=== PATIENT | male | born 1985 | race Caucasian/White ===

== ENCOUNTER 2016-04-22 14:00 | Observation (INO) | payer OTHER ==
[2016-04-22] MEDS ORDERED: ONDANSETRON HCL/PF 2 MG/ML VIAL IV ONE (14:24)
[2016-04-22] MEDS ORDERED: ONDANSETRON HCL/PF 2 MG/ML VIAL ONE ×2 (14:25→19:09)
[2016-04-22 14:36] LABS: Hematocrit 44.6 % (42.0-52.0); Hemoglobin 16.8 gm/dL (13.5-18.0); Mean Cell Volume 90.3 fl (78-100); Mean Corpuscular Hgb Conc 37.7 g/dl (32-36); Mean Platelet Volume 8.2 fl (6.0-9.5); Neutrophil # 9.4 K/mm3 (1.3-6.0); Neutrophil % 74.3 % (42-75.0); Platelet Count 273 K/mm3 (150-450); Red Blood Count 4.94 M/mm3 (4.7-6.0); Red Cell Distribution Width 11.9 % (11.5-14.0); White Blood Count 12.6 K/mm3 (4.0-10.5)
[2016-04-22] MEDS: NORMAL SALINE 1,000 ML IV ONE ×2 (14:38→15:12)
[2016-04-22 14:50] LABS: ALT 244 U/L (19-67); AST 115 U/L (0-48); Albumin * 4.4 gm/dl (3.4-5.0); Alkaline Phosphatase * 102 U/L (50-170); Amylase * 54 U/L (25-115); Anion Gap 25.1 mmol/L (6.8-13.8); BUN/Creatinine Ratio 22.4 (9.0-21.6); Bilirubin, Total 1.1 mg/dL (0.0-1.1); Blood Urea Nitrogen 38 mg/dL (6-23); Ca. Corrected For Albumin 8.5 mg/dL (8.4-10.2); Calcium * 9.1 mg/dL (7.9-10.9); Carbon Dioxide 24.4 mmol/L (24-32.6); Chloride 86 mmol/L (97-106); Glucose * 425 mg/dL (70-110); Lipase 110 U/L (73-393); Potassium 4.5 mmol/L (3.4-4.6); Sodium 131 mmol/L (132-142); Total Protein 8.2 gm/dL (6.2-8.2)
[2016-04-22] MEDS ORDERED: NORMAL SALINE 1,000 ML IV ONE (15:11)
--- NOTE | 2016-04-22 15:24 | ERNOTE ---
Medical Problem HPI - General Chief Complaint: Nausea/Vomiting Source: patient Exam Limitations: no limitations - Immun/Allergies/Home Medications Immunizations: IMMUNIZATION HX Immunizations Up to Date Yes History of Influenza Vaccine No Hx Pneumococcal Vaccination No Allergies/Adverse Reactions: Allergies oxycodone [Oxycodone] Allergy (Mild, Verified 04/22/16 14:22) N/V acetaminophen [From Percocet] Allergy (Verified 04/22/16 14:22) oxycodone HCl [From Percocet] Allergy (Verified 04/22/16 14:22) Home Medications: HOME MEDICATIONS Hydrophilic Ointment [Aquaphilic Ointment] 1 appl TP BID #1 jar 06/06/15 [Last Taken Unknown] Aspirin [Aspirin Enteric Coated] 81 mg PO DAILY 10/22/15 [Last Taken Unknown] Aspirin/Acetaminophen/Caffeine [Excedrin Migraine Caplet] 1 each PO BID PRN [Last Taken Unknown] Blood Sugar Diagnostic, Drum [Accu-Chek Compact] 1 each MC QID 10/22/15 [Last Taken Unknown] Fluticasone Propionate [Flonase] 1 spray NS DAILY 10/22/15 [Last Taken Unknown] Gabapentin 800 mg PO QID 10/22/15 [Last Taken Unknown] Insulin Lispro [Humalog] 0 unit SQ ACHS 10/22/15 [Last Taken Unknown] Mupirocin [Bactroban] 1 appl TP BID 10/22/15 [Last Taken Unknown] Divalproex Sodium [Depakote] 250 mg PO HS 04/22/16 [Last Taken Unknown] Insulin Detemir [Levemir Flextouch] 26 unit SQ BID 04/22/16 [Last Taken Unknown] Mirtazapine [Remeron] 30 mg PO DAILY 04/22/16 [Last Taken Unknown] Rosuvastatin Calcium [Crestor] 20 mg PO DAILY 04/22/16 [Last Taken Unknown] Sulfamethoxazole/Trimethoprim [Bactrim Ds] 1 tab PO BID 04/22/16 [Last Taken Unknown] Insulin Detemir [Levemir] 26 units SC BID vial 04/23/16 [Last Taken Unknown] Insulin Lispro [Humalog] 4 - 13 units SC ACINS vial 04/23/16 [Last Taken Unknown] Insulin Lispro [Humalog] 5 units SC ACINS vial 04/23/16 [Last Taken Unknown] - History of Present History Narrative: Patient woke up vomiting yesterday. He is a insulin dependant diabetic. He states that he has been taking his insulin but only checks his glucose when he feels that he might be running too low or too high, has not checked it in a few days Date (Duration): 04/21/16 Timing: constant Review of Systems - Review of Systems Constitutional: Absent: recent illness, fever, chills ENT: Absent: nose congestion, sore throat Respiratory: Absent: shortness of breath, cough Cardiology: Absent: chest pain Gastrointestinal/Abdominal: Present: See HPI, nausea, vomiting, abdominal pain. Absent: diarrhea Genitourinary: Present: decreased urinary output Musculoskeletal: Absent: neck pain Skin: Absent: rash Neurological: Absent: headache - Patient's Past Medical History Patient History - Medical: Diabetes Type 1, Migraines Patient History - Cardiac/Respiratory: No pertinent hx Patient History - Cancer: No Hx of Cancer Patient History - Surgical Procedures: Cataracts, Other Patient History - Other: None - Family History Father Family History - Medical: No pertinent hx Family History - Cardiac/Respiratory: No pertinent hx Mother Family History - Medical: Hypothyroidism Family History - Cardiac/Respiratory: No pertinent hx Mom Family History - Medical: Hypothyroidism Family History - Cardiac/Respiratory: No pertinent hx - Social History Living Situations: alone Abuse History: No History of abuse Psych History: No pertinent hx Smoking Status: Current every day smoker Have you smoked in the past 12 months: Yes Alcohol Use: occasionally Drug Use: none - Immunizations Immunizations Up to Date: Yes Hx Pneumococcal Vaccination: No History of Influenza Vaccine: No Physical Exam - Physical Exam General Appearance: Present: wd/wn, alert, no apparent distress, other - unkept Ears, Nose, Throat: Present: normal pharynx, dry mucous membranes Neck: Present: normal inspection Respiratory: Present: no respiratory distress, no accessory muscle use, lungs clear, decreased breath sounds Cardiovascular/Chest: Present: regular rate, rhythm, no murmur Gastrointestinal/Abdominal: Present: normal bowel sounds, nondistended, soft, tenderness - mild, left abdomen Neurological Exam: Present: alert, oriented, normal mood/affect Skin Exam: Present: normal color, warm/dry ED Progress - Results and Orders Patient's Lab Results:: I have reviewed the patient's lab results. - Vital Signs Patient's Vital Signs:: I have reviewed the patient's vital signs. Vital Signs: Vital Signs 04/22/16 14:09 Temperature 36.3 C L Pulse Rate 94 Respiratory 16 Rate Blood Pressure 121/81 O2 Sat by Pulse 97 Oximetry - Progress/Reassessment Chief Complaint: Nausea/Vomiting Progress Note-Subjective: 04/22/16 15:27 discussed with arti Victoria to admit for DKA protocol Departure - Departure Clinical Impression: DKA (diabetic ketoacidoses) Qualifiers: Diabetes mellitus type: type 1 Diabetes mellitus complication detail: without coma Qualified Code(s): E10.10 - Type 1 diabetes mellitus with ketoacidosis without coma Disposition: [facility] Condition: Good
[2016-04-22] MEDS ORDERED: INSULIN REGULAR HUMAN REC 100 UNITS in NORMAL SALINE 100 ML IV PRN (15:26)
--- OUTSIDE RECORDS SUMMARY | 2016-04-22 15:31 | XMS REPORT | Continuity of Care Document ---
:1985 Author Organization [facility] ([facility]) Address [address] [place] [address] Phone [phone] Care Team Providers Name Role Phone Sisi Sokamlesh Primary Care Provider [phone] Source Comments This disclosure is being made pursuant to the Care Everywhere program, applicable federal and state laws, and may not contain all informaitonavailable regarding this patient.[facility] ([facility]) Active Allergies and Adverse Reactions Allergen Noted Date Severity Reactions Comments Oxycodone 11/04/2013 Nausea & Vomiting Current Medications Prescription Sig. Disp. Refills Start Date End Date Status blood glucose meter Use as directed 1 Each 0 04/15/2011 Active (BLOOD GLUCOSE Indications: METER) Kit Diabetes Mellitus SUPPLY blood glucose Use to test blood 100 Strip 03/16/2012 Active test strips sugars 4 times daily or as directed. Indications: DIABETES MELLITUS SUPPLY insulin pen Use as directed with 100 Each 6 03/16/2012 Active needles (PEN insulin NEEDLES) 31 g X 6 pens.Dispense MM UltiCare or SM Clickfine Pen [place] Indications: DIABETES MELLITUS SUPPLY lancets Use twice daily or 150 Each 03/16/2012 Active as directed. Indications: DIABETES MELLITUS amitriptyline 25 mg Take 1 Tab by mouth 60 Tab 3 04/09/2012 Active tablet at bedtime. Indications: NEUROPATHIC PAIN insulin aspart inject 2-10 Units 03/16/2012 Active (NovoLOG FLEXPEN) subcutaneously 3 100 unit/mL (3 mL) times daily before injection pen meals. 5 units + sliding scale Indications: TYPE 1 DIABETES MELLITUS folic acid 1 mg Take 1 Tab by mouth 30 Tab 5 06/30/2014 Active tablet daily. Indications: hx of alcohol abuse thiamine 100 mg Take 1 Tab by mouth 30 Tab 5 06/30/2014 Active tablet daily. 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 08/2015 with macular edema, bilateral Pseudophakia of both eyes 02/06/2016 Immune to hepatitis A 03/28/2014 Immune to hepatitis B 03/28/2014 Health education/counseling 04/09/2012 Neuropathy of both feet 03/16/2012 Knee pain, right 04/15/2011 Goals per pt 04/15/2011 Type I (juvenile type) diabetes mellitus without mention of complication, 04/2009 uncontrolled Tobacco use disorder 01/02/2010 Chronic hepatitis C without mention of hepatic coma 01/02/2010 Most Recent Encounters Date Type Specialty Providers Description 02/06/2016 Office Visit Ophthalmology - Chief Comp: Patient Specialty Reported Reason For Visit 02/06/2016 Office Visit Ophthalmology - Chief Comp: Patient Specialty Reported Reason For Visit 02/06/2016 Office Visit Ophthalmology - Roby Gong MD Dx: Pseudophakia, both Specialty eyes (Primary Dx) Immunizations Name Dates Previously Given Next Due Influenza, PF 03/16/2012,04/15/2011 Pneumococcal Polysaccharide, PPSV23 (Pneumovax 23) 01/02/2010 Tdap 01/02/2010 Social History Tobacco Use Types Packs/Day Years Used Date Current Every Day Smoker Cigarettes 0.5 17 Smokeless Tobacco: Current User Snuff Tobacco Cessation:Ready to Quit: No; Counseling Given: Yes Comments: Alcohol Use Drinks/Week oz/Week Comments Yes occ Last Filed Vital Signs Vital Sign Reading Time Taken Blood Pressure 129/65 06/30/2014 3:20 PM CDT Pulse 81 06/30/2014 3:20 PM CDT Temperature 36.7 C (98.1 F) 06/30/2014 3:20 PM CDT Respiratory Rate 16 09/27/2011 8:19 AM CDT Height 1.803 m (5' 10.98") 06/30/2014 3:20 PM CDT Weight 77.021 kg (169 lb 12.8 oz) 06/30/2014 3:20 PM CDT Body Mass Index 23.69 06/30/2014 3:20 PM CDT Oxygen Saturation 99% 09/27/2011 8:19 AM CDT Plan of Care Patient Goal Type Goal Diet Eat more fruits and vegetables Have 3 meals a day Result Component % HBA1C below 7.0 % HBA1C below 7.0 Lifestyle Quit smoking / using tobacco Date Type Specialty Providers Description 07/17/2016 Appointment Ophthalmology - Roby Gong MD Chief Comp: Patient Specialty [address] [place] [address] Visit [phone] (Fax) Health Maintenance Due Date Last Done Comments Hepatitis B Vaccine (1 of 3 - Primary 1985 Series) MMR Vaccine 06/20/2001 Varicella Vaccine (1 of 2 - Adult - 06/20/2001 No Evidence of Immunity) DIABETIC: Microalbumin 04/24/2012 04/24/2011 DIABETIC: Hemoglobin A1C 09/13/2012 03/16/2012, 04/15/2011, 01/02/2010 DIABETIC: Cholesterol 03/16/2013 03/16/2012, 04/15/2011 DIABETIC: Foot Exam 03/16/2013 03/16/2012, 04/15/2011, 04/15/2011 Diabetic: Hdl 03/16/2013 03/16/2012, 04/15/2011 Diabetic: Ldl 03/16/2013 03/16/2012, 04/15/2011 DIABETIC: Triglycerides 03/16/2013 03/16/2012, 04/15/2011 Influenza Vaccine: Seasonal (#1) 10/01/2015 03/16/2012, 04/15/2011 DIABETIC: Retinal Eye Exam 02/05/2017 02/06/2016, 05/08/2011 Td Vaccine 01/03/2020 01/02/2010 Pneumococcal Vaccine Completed 01/02/2010 Tdap Vaccine Completed 01/02/2010 Results from Last 3 Months OCT MACULA (02/06/2016 3:27 PM) Narrative Spectralis ocular coherence tomography shows mild cystoid macular edema and exudates in both eyes sparing the fovea. The foveal contour is intact in both eyes. There is trace epiretinal membrane in both eyes. Cirrus ocular coherence tomography angiography demonstrates mild juxtafoveal flow loss in superficial and deep retinal plexi both eyes as well as numerous microaneurysms, no neovascularization either eye. COLOR FUNDUS PHOTOGRAPHY (02/06/2016 3:25 PM) Narrative Optos wide-field imaging of both eyes. There are scattered intraretinal hemorrhages and cotton-wool spots in the macula and mid-periphery of both eyes. There is no neovascularization of the disc or elsewhere seen either eye.
--- OUTSIDE RECORDS SUMMARY | 2016-04-22 15:41 | XMS REPORT | Continuity of Care Document ---
:1985 Author Organization [facility] ([facility]) Address [address] [place] [address] Phone [phone] Care Team Providers Name Role Phone Sisi Sokamlesh Primary Care Provider [phone] Source Comments This disclosure is being made pursuant to the Care Everywhere program, applicable federal and state laws, and may not contain all informaitonavailable regarding this patient.[facility] ([facility]) Active Allergies and Adverse Reactions Allergen Noted [...] pens.Dispense MM UltiCare or SM Clickfine Pen [place] Indications: DIABETES MELLITUS SUPPLY lancets Use twice [...] Specialty [address] [place] [address] Visit [phone] (Fax) Health Maintenance Due Date Last Done [...]
[2016-04-22] MEDS ORDERED: POTASSIUM CHLORIDE 20 MEQ in DEXTROSE 5%-0.5 NORMAL SALINE 990 ML IV SCH (15:45)
[2016-04-22 16:19] LABS: Carbon Dioxide 24.1 mmol/L (24-32.6); Potassium 4.1 mmol/L (3.4-4.6)
[2016-04-22 16:27] LABS: Urine Bilirubin 1 mg/dl (NEGATIVE); Urine Blood 25 /ul (NEGATIVE); Urine Ketone Large mg/dL (NEGATIVE); Urine Nitrite Negative (NEGATIVE); Urine Protein 15 mg/dL (NEGATIVE); Urine Urobilinogen Normal (NORMAL)
[2016-04-22 16:33] LABS: Cocaine Ur Negative (NEGATIVE); Urine Barbiturate Negative (NEGATIVE); Urine Benzodiazepines Negative (NEGATIVE); Urine Opiates Negative (NEGATIVE); Urine PCP Negative (NEGATIVE)
[2016-04-22 16:34] LABS: Urine THC Positive (NEGATIVE)
[2016-04-22 16:39] LABS: Urine Appearance Clear; Urine Bacteria None Seen; Urine Color Yellow; Urine RBC None Seen /hpf (0-5); Urine WBC None Seen /hpf (0-5)
[2016-04-22 16:40] LABS: Urine Hyaline Cast TRACE /LPF
[2016-04-22] MEDS: POTASSIUM CHLORIDE 40 MEQ in NORMAL SALINE 1,000 ML IV SCH ×2 (17:01→22:30)
[2016-04-22] MEDS: GABAPENTIN 400 MG CAPSULE PO SCH ×2 (17:04→21:36)
[2016-04-22 17:50] LABS: Carbon Dioxide 27.3 mmol/L (24-32.6); Potassium 4.3 mmol/L (3.4-4.6)
[2016-04-22 20:44] LABS: Anion Gap 11.7 mmol/L (6.8-13.8); Carbon Dioxide 29.6 mmol/L (24-32.6); Potassium 4.3 mmol/L (3.4-4.6)
[2016-04-22] MEDS ORDERED: ONDANSETRON HCL/PF 2 MG/ML VIAL IV PRN (20:44)
[2016-04-22] MEDS ORDERED: MUPIROCIN 22 APPL TUBE TP SCH (21:00)
[2016-04-22] MEDS ORDERED: ROSUVASTATIN CALCIUM 10 MG TABLET PO SCH (21:00)
[2016-04-22] MEDS ORDERED: HYDROPHILIC OINTMENT 454 APPL JAR TP SCH (21:00)
[2016-04-22] MEDS ORDERED: MIRTAZAPINE 15 MG TABLET PO SCH (21:00)
[2016-04-22] MEDS ORDERED: SULFAMETHOXAZOLE/TRIMETHOPRIM 1 TAB TABLET PO SCH (21:00)
[2016-04-22] MEDS ORDERED: DIVALPROEX SODIUM 250 MG TABLET.DR PO SCH (21:00)
[2016-04-22] MEDS ORDERED: POTASSIUM CHLORIDE 20 MEQ in NORMAL SALINE 1,000 ML IV SCH (21:30)
[2016-04-22 21:58] LABS: Anion Gap 11.7 mmol/L (6.8-13.8); Carbon Dioxide 29.2 mmol/L (24-32.6); Potassium 3.9 mmol/L (3.4-4.6)
[2016-04-22] MEDS ORDERED: POTASSIUM CHLORIDE 20 MEQ TABLET.SA PO SCH (23:15)
[2016-04-22] MEDS ORDERED: FLUTICASONE PROPIONATE 120 SPRAY INHALER NS SCH (23:30)
[2016-04-22] MEDS: ONDANSETRON HCL/PF 2 MG/ML VIAL IV SCH ×2 (23:49→23:52)
[2016-04-22 23:59] LABS: Anion Gap 10.4 mmol/L (6.8-13.8); Carbon Dioxide 29.3 mmol/L (24-32.6); Potassium 3.7 mmol/L (3.4-4.6)
--- NOTE | 2016-04-23 00:17 | HP ---
Chief Complaint - Chief Complaint Date of Service: 04/23/16 Time of Service: 18:45 Chief Complaint: Vomiting History of Present Illness: This 30 y/o type 1 diabetic woke up vomiting yesterday morning. No prodrome. Multiple episodes of stomach contents through today when he came to the [facility] ER. Didn't take his temperature. No diarrhea. No one in his house ill with a similar illness. In the ER, hyperglycemic with positive ketones. Given IV fluids, IV insulin and symptomatic meds. At the time of my exam, he is substantially improved. - Patient's Past Medical History Patient History - Medical: Diabetes Type 1, Migraines Patient History - Cardiac/Respiratory: No pertinent hx Patient History - Cancer: No Hx of Cancer, Other - MRSA imptetigo. Eczema. Patient History - Surgical Procedures: Cataracts, Other Patient History - Other: None - Family History Father Family History - Medical: No pertinent hx Family History - Cardiac/Respiratory: No pertinent hx Mother Family History - Medical: Hypothyroidism Family History - Cardiac/Respiratory: No pertinent hx Mom Family History - Medical: Hypothyroidism Family History - Cardiac/Respiratory: No pertinent hx - Social History Living Situations: alone Abuse History: No History of abuse Psych History: No pertinent hx Smoking Status: Current every day smoker Have you smoked in the past 12 months: Yes Do you dip or chew tobacco: Yes Smoking Start Date: 03/02/99 Patient requests Smoking Cessation Consult: No Initiate information on Smoking Cessation: No Alcohol Use: occasionally Drug Use: none - Immunizations Immunizations Up to Date: Yes Hx Pneumococcal Vaccination: No History of Influenza Vaccine: No Review Of Systems (GEN) - Review of Systems Generalized/Overall Review: Present: Weakness, Malaise, Diaphoresis EENTM: Present: No Symptoms Reported Respiratory: Present: No Symptoms Reported Cardiac: Present: No Symptoms Reported Abdominal: Present: Nausea, Vomiting Genitourinary: Present: No Symptoms Reported Musculoskeletal: Present: No Symptoms Reported Neurological: Present: No Symptoms Reported Skin: Present: No Symptoms Reported Endocrine: Present: No Symptoms Reported Misc: All systems neg except as marked Immunizations: IMMUNIZATION HX Immunizations Up to Date Yes History of Influenza Vaccine No Hx Pneumococcal Vaccination No Allergies/Adverse Reactions: Allergies Allergy/AdvReac Type Severity Reaction Status Date / Time oxycodone [Oxycodone] Allergy Mild N/V Verified 04/22/16 14:22 acetaminophen [From Percocet] Allergy Verified 04/22/16 14:22 oxycodone HCl [From Percocet] Allergy Verified 04/22/16 14:22 Home Medications: HOME MEDICATIONS Hydrophilic Ointment [Aquaphilic Ointment] 1 appl TP BID #1 jar 06/06/15 [Last Taken Unknown] Aspirin [Aspirin Enteric Coated] 81 mg PO DAILY 10/22/15 [Last Taken Unknown] Aspirin/Acetaminophen/Caffeine [Excedrin Migraine Caplet] 1 each PO BID PRN [Last Taken Unknown] Blood Sugar Diagnostic, Drum [Accu-Chek Compact] 1 each MC QID 10/22/15 [Last Taken Unknown] Fluticasone Propionate [Flonase] 1 spray NS DAILY 10/22/15 [Last Taken Unknown] Gabapentin 800 mg PO QID 10/22/15 [Last Taken Unknown] Insulin Lispro [Humalog] 0 unit SQ ACHS 10/22/15 [Last Taken Unknown] Mupirocin [Bactroban] 1 appl TP BID 10/22/15 [Last Taken Unknown] Divalproex Sodium [Depakote] 250 mg PO HS 04/22/16 [Last Taken Unknown] Insulin Detemir [Levemir Flextouch] 26 unit SQ BID 04/22/16 [Last Taken Unknown] Mirtazapine [Remeron] 30 mg PO DAILY 04/22/16 [Last Taken Unknown] Rosuvastatin Calcium [Crestor] 20 mg PO DAILY 04/22/16 [Last Taken Unknown] Sulfamethoxazole/Trimethoprim [Bactrim Ds] 1 tab PO BID 04/22/16 [Last Taken Unknown] Exam - Exam Vital Signs: Vital Signs - Last Taken Selected Entries 04/22/16 16:00 Temperature 37.1 C Temperature Oral Source Pulse Rate 80 Pulse Rhythm Regular Pulse Strength Normal Respiratory 20 Rate Respiratory Normal Depth Respiratory Normal Effort Non-Labored Respiratory Normal Pattern Blood Pressure 112/71 Blood Pressure Sitting Position O2 Sat by Pulse 97 Oximetry Oxygen Delivery Room Air Method Constitutional: Present: Alert, Oriented x3, Cooperative, Well developed, Well nourished, No distress ENT Exam: Present: normal ENT inspection, hearing grossly normal, pharynx normal Eye Exam: bilateral eye: normal inspection, PERRL, EOMI Neck: Present: normal inspection Back Exam: Present: normal inspection Respiratory: Present: lungs clear, no respiratory distress Cardiovascular/Chest: Present: regular rate, rhythm, no murmur Abdomen: Present: Normal bowel sounds, soft, nontender, nondistended, no rebound tenderness, no hepatospenomegaly, no masses Extremity: Present: normal inspection, no pedal edema Skin Exam: Present: normal color, warm/dry, no cyanosis Neurologic: Present: alert, oriented x 3 Appearance: Present: appropriate appearance, neat, no memory impairment Eye contact: Present: cooperative, good eye contact, normal speech Thoughts: Present: normal thought pattern Diagnostic Studies: Abnormal Lab Results 04/22/16 04/22/16 04/22/16 Range/Units 16:01 16:15 16:15 Chloride 93 L (97-106) mmol/L Anion Gap 20.0 H (6.8-13.8) mmol/L Urine Protein 15 H (NEGATIVE) mg/dL Urine Glucose (UA) >=1000 H (NEGATIVE) mg/dL Urine Blood 25 H (NEGATIVE) /ul Urine Bilirubin 1 H (NEGATIVE) mg/dl Urine Marijuana (THC) Positive H (NEGATIVE) 04/22/16 04/22/16 Range/Units 17:42 19:45 Chloride 95 L 96 L (97-106) mmol/L Anion Gap 17.0 H (6.8-13.8) mmol/L Urine Protein (NEGATIVE) mg/dL Urine Glucose (UA) (NEGATIVE) mg/dL Urine Blood (NEGATIVE) /ul Urine Bilirubin (NEGATIVE) mg/dl Urine Marijuana (THC) (NEGATIVE) Laboratory Results WBC 12.6 K/mm3 (4.0-10.5) H 04/22/16 14:25 RBC 4.94 M/mm3 (4.7-6.0) 04/22/16 14:25 Hgb 16.8 gm/dL (13.5-18.0) 04/22/16 14:25 Hct 44.6 % (42.0-52.0) 04/22/16 14:25 MCV 90.3 fl (78-100) 04/22/16 14:25 MCH 34.0 pg (27-31) H 04/22/16 14:25 MCHC 37.7 g/dl (32-36) H 04/22/16 14:25 RDW 11.9 % (11.5-14.0) 04/22/16 14:25 Plt Count 273 K/mm3 (150-450) 04/22/16 14:25 MPV 8.2 fl (6.0-9.5) 04/22/16 14:25 Immature Gran % (Auto) 0.40 % (0.001-0.429) 04/22/16 14:25 Immature Gran # (Auto) 0.05 K/mm3 (0.000-0.0310) H 04/22/16 14:25 Neutrophils % 74.3 % (42-75.0) 04/22/16 14:25 Lymphocytes % 16.2 % (20-51) L 04/22/16 14:25 Monocytes % 8.7 % (0.0-9) 04/22/16 14:25 Eosinophils % 0.1 % (0.0-3.0) 04/22/16 14:25 Basophils % 0.3 % (0.0-1.0) 04/22/16 14:25 Nucleated RBC % 0.0 k/mm3 (0-1) 04/22/16 14:25 Neutrophils # 9.4 K/mm3 (1.3-6.0) H 04/22/16 14:25 Lymphocytes # 2.0 k/mm3 (1.5-3.5) 04/22/16 14:25 Monocytes # 1.1 k/mm3 (0.0-1.0) H 04/22/16 14:25 Eosinophils # 0.0 k/mm3 (0.0-0.7) 04/22/16 14:25 Absolute Basophils 0.0 k/mm3 (0.0-0.1) 04/22/16 14:25 VBG pH 7.455 (7.32-7.43) H 04/22/16 14:25 Sodium 137 mmol/L (132-142) 04/22/16 23:47 Plasma Sodium 136 mmol/L (130-142) 04/22/16 14:25 Potassium 3.7 mmol/L (3.4-4.6) 04/22/16 23:47 Chloride 101 mmol/L (97-106) 04/22/16 23:47 Carbon Dioxide 29.3 mmol/L (24-32.6) 04/22/16 23:47 Anion Gap 10.4 mmol/L (6.8-13.8) 04/22/16 23:47 BUN 38 mg/dL (6-23) H D 04/22/16 14:25 Creatinine 1.70 mg/dL (0.4-1.4) H D 04/22/16 14:25 Est GFR (Non-Af Amer) 50 mL/min (60-130) L D 04/22/16 14:25 BUN/Creatinine Ratio 22.4 (9.0-21.6) H 04/22/16 14:25 Random Glucose 425 mg/dL (70-110) H 04/22/16 14:25 Calcium 9.1 mg/dL (7.9-10.9) 04/22/16 14:25 Calcium Adj for Albumin 8.5 mg/dL (8.4-10.2) 04/22/16 14:25 Total Bilirubin 1.1 mg/dL (0.0-1.1) 04/22/16 14:25 AST 115 U/L (0-48) H 04/22/16 14:25 ALT 244 U/L (19-67) H 04/22/16 14:25 Alkaline Phosphatase 102 U/L (50-170) 04/22/16 14:25 Total Protein 8.2 gm/dL (6.2-8.2) 04/22/16 14:25 Albumin 4.4 gm/dl (3.4-5.0) 04/22/16 14:25 Amylase 54 U/L (25-115) 04/22/16 14:25 Lipase 110 U/L (73-393) 04/22/16 14:25 Urine Color Yellow 04/22/16 16:15 Urine Appearance Clear 04/22/16 16:15 Urine pH 6.0 pH (5.0-7.0) 04/22/16 16:15 Ur Specific [place] 1.020 SP.GR. (1.005-1.030) 04/22/16 16:15 Urine Protein 15 mg/dL (NEGATIVE) H 04/22/16 16:15 Urine Glucose (UA) >=1000 mg/dL (NEGATIVE) H 04/22/16 16:15 Urine Ketones Large mg/dL (NEGATIVE) 04/22/16 16:15 Urine Blood 25 /ul (NEGATIVE) H 04/22/16 16:15 Urine Nitrate Negative (NEGATIVE) 04/22/16 16:15 Urine Bilirubin 1 mg/dl (NEGATIVE) H 04/22/16 16:15 Urine Ictotest Negative (NEGATIVE) 04/22/16 16:15 Prot Sulfosalicylic Acd Negative mg/dL (0) 04/22/16 16:15 Urine Urobilinogen Normal EU/dl (NORMAL) 04/22/16 16:15 Ur Leukocyte Esterase Negative /ul (NEGATIVE) 04/22/16 16:15 Urine RBC None seen /hpf (0-5) 04/22/16 16:15 Urine WBC None seen /hpf (0-5) 04/22/16 16:15 Ur Epithelial Cells None seen /hpf (0-5) 04/22/16 16:15 Urine Bacteria None seen (NONE) 04/22/16 16:15 Hyaline Casts Trace /LPF (NONE) 04/22/16 16:15 Urine Culture Comments No culture indicated 04/22/16 16:15 Urine Opiates Screen Negative (NEGATIVE) 04/22/16 16:15 Barbiturate Screen Negative (NEGATIVE) 04/22/16 16:15 Ur Phencyclidine Scrn Negative (NEGATIVE) 04/22/16 16:15 Urine Amphetamine Negative (NEGATIVE) 04/22/16 16:15 U Benzodiazepines Scrn Negative (NEGATIVE) 04/22/16 16:15 Urine Cocaine Screen Negative (NEGATIVE) 04/22/16 16:15 Urine Marijuana (THC) Positive (NEGATIVE) H 04/22/16 16:15 Serum Ketones Positive - 80mg/dl (NEGATIVE) H 04/22/16 14:25 Assessment/Plan - Narrative Narrative: IV fluids. Frequent sugar checks. Maintain electrolytes. Symptom control. IV insulin. Hopefully, home tomorrow. - Assessment/Plan (1) DKA (diabetic ketoacidoses) Problem: Acute Qualifiers: Diabetes mellitus type: type 1 Diabetes mellitus complication detail: without coma Qualified Code(s): E10.10 - Type 1 diabetes mellitus with ketoacidosis without coma (2) Eczema Problem: Chronic Qualifiers: Eczema type: unspecified Qualified Code(s): L30.9 - Dermatitis, unspecified (3) Tobacco abuse Problem: Chronic (4) Type 1 diabetes mellitus Problem: Chronic Qualifiers: Diabetes mellitus complication status: with unspecified complications Qualified Code(s): E10.8 - Type 1 diabetes mellitus with unspecified complications
[2016-04-23] MEDS ORDERED: INSULIN DETEMIR 100 UNITS/ML VIAL SC SCH (01:15)
[2016-04-23] MEDS ORDERED: POTASSIUM CHLORIDE 20 MEQ in DEXTROSE 5%-0.5 NORMAL SALINE 990 ML IV SCH (01:15)
[2016-04-23] MEDS ORDERED: INSULIN LISPRO 100 UNITS/ML VIAL SC ONE (01:30)
[2016-04-23] MEDS: ONDANSETRON HCL/PF 2 MG/ML VIAL IV SCH ×2 (03:01→08:28)
[2016-04-23 04:00] LABS: Hematocrit 37.7 % (42.0-52.0); Hemoglobin 13.7 gm/dL (13.5-18.0); Mean Cell Volume 92.9 fl (78-100); Mean Corpuscular Hemoglobin 33.7 pg (27-31); Mean Corpuscular Hgb Conc 36.3 g/dl (32-36); Mean Platelet Volume 8.1 fl (6.0-9.5); Neutrophil # 6.3 K/mm3 (1.3-6.0); Neutrophil % 54.7 % (42-75.0); Platelet Count 182 K/mm3 (150-450); Red Blood Count 4.06 M/mm3 (4.7-6.0); Red Cell Distribution Width 11.9 % (11.5-14.0); White Blood Count 11.5 K/mm3 (4.0-10.5)
[2016-04-23 04:10] LABS: Anion Gap 9.6 mmol/L (6.8-13.8); BUN/Creatinine Ratio 16.8 (9.0-21.6); Calcium * 7.8 mg/dL (7.9-10.9); Carbon Dioxide 29.1 mmol/L (24-32.6); Estimated Creat Clear 111.8; Potassium 3.7 mmol/L (3.4-4.6)
[2016-04-23] MEDS ORDERED: NORMAL SALINE 1,000 ML IV PRN (05:20)
--- NOTE | 2016-04-23 06:17 | DS ---
<Alberta Bailey - Last Filed: 04/23/16 06:18> (1) DKA (diabetic ketoacidoses) Problem: Acute QualifierTitle: Diabetes mellitus type: type 1 Diabetes mellitus complication detail: without coma Qualified Code(s): E10.10 - Type 1 diabetes mellitus with ketoacidosis without coma (2) Marijuana abuse Problem: Chronic (3) Tobacco abuse Problem: Chronic Description of Stay: Mr. Jones was admitted on 04/22/16 under observation status for DKA. He had come into the ER with complaints of vomiting most of the day. He has a known history of DM Type I. During evaluation at the ED, he was found to be hyperglycemic with a BS of 425mg/DL with positive ketones. He received treatment under DKA protocol with aggressive IVF hydration and Insulin drip. His initial Anion gap was 25mmol/L and he was able to close the gap to the level of 9.6. His blood sugars improved to level of < 200mg/DL. He did not have any episodes of vomiting during the overnight stay. He was transitioned to his home insulin doses. He was not severely dehydrated and was able to tolerate oral intake during the night. He is in a stable condition to be discharged home as his DKA has resolved. He will follow-up with his PCP next week. . Procedures Performed: none Discharge Disposition: Home self care Disposition: Home self-care Condition: Good Discharge Activity: Activity as tolerated Discharge Diet: Consistent carbs Referrals: Dominguez Ochoa MD [Primary Care Provider] - Problem Oriented Discharge Instructions to Patient/Family: Diabetic Ketoacidosis Additional Patient Instructions (free text): Before he leaves this morning, please make a followup appt for him with me towards the middle to end of next week. Complete Home Medications List: Complete Home Medication List: Hydrophilic Ointment [Aquaphilic Ointment] 1 appl TP BID #1 jar 06/06/15 Aspirin [Aspirin Enteric Coated] 81 mg PO DAILY 10/22/15 Aspirin/Acetaminophen/Caffeine [Excedrin Migraine Caplet] 1 each PO BID PRN Blood Sugar Diagnostic, Drum [Accu-Chek Compact] 1 each MC QID 10/22/15 Fluticasone Propionate [Flonase] 1 spray NS DAILY 10/22/15 Gabapentin 800 mg PO QID 10/22/15 Insulin Lispro [Humalog] 0 unit SQ ACHS 10/22/15 Mupirocin [Bactroban] 1 appl TP BID 10/22/15 Divalproex Sodium [Depakote] 250 mg PO HS 04/22/16 Insulin Detemir [Levemir Flextouch] 26 unit SQ BID 04/22/16 Mirtazapine [Remeron] 30 mg PO DAILY 04/22/16 Rosuvastatin Calcium [Crestor] 20 mg PO DAILY 04/22/16 Sulfamethoxazole/Trimethoprim [Bactrim Ds] 1 tab PO BID 04/22/16 Insulin Detemir [Levemir] 26 units SC BID vial 04/23/16 Insulin Lispro [Humalog] 4 - 13 units SC ACINS vial 04/23/16 Insulin Lispro [Humalog] 5 units SC ACINS vial 04/23/16 <Dominguez Ochoa - Last Filed: 04/23/16 07:38> (1) DKA (diabetic ketoacidoses) Problem: Acute Qualifiers: Diabetes mellitus type: type 1 Diabetes mellitus complication detail: without coma Qualified Code(s): E10.10 - Type 1 diabetes mellitus with ketoacidosis without coma (2) Eczema Problem: Chronic Qualifiers: Eczema type: unspecified Qualified Code(s): L30.9 - Dermatitis, unspecified (3) Tobacco abuse Problem: Chronic (4) Type 1 diabetes mellitus Problem: Chronic Qualifiers: Diabetes mellitus complication status: with unspecified complications Qualified Code(s): E10.8 - Type 1 diabetes mellitus with unspecified complications Description of Stay: Hungry, no nausea, ready to go back to work today. Sugars very well controlled. I directly supervised Alberta Bailey in all of her care for this patient. Discharge Disposition: Home self care
[2016-04-23 06:37] VITALS: BP 94/53
[2016-04-23] MEDS ORDERED: INSULIN LISPRO 100 UNITS/ML VIAL SC SCH ×2 (07:00)
[2016-04-23] MEDS ORDERED: ROSUVASTATIN CALCIUM 10 MG TABLET PO SCH ×2 (09:00→21:00)
== END 2016-04-23 08:56 | disposition home or self-care (01) ==
LOC: ER 14:00 → MS 15:37
PROVIDERS: ADMIT Allergy & Immunology; ATTEND Allergy & Immunology
DX: E10.10 Type 1 diabetes mellitus with ketoacidosis without coma (principal); L30.9 Dermatitis, unspecified; Z72.0 Tobacco use; F12.10 Cannabis abuse, uncomplicated
CPT/HCPCS: 36415; 80048; 80051; 80053; 80307; 81001; 82009; 82150; 82800; 83690; 85025; 87081; 96374; 99283; G0378